=== PATIENT | female | born 1995 | race Two or more races ===

== ENCOUNTER 2017-06-26 18:35 | Emergency (ER) | payer MEDICAID, OTHER ==
[~2017-06-26] VITALS: Ht 165.1 cm; Wt 71.0 kg
[2017-06-26 23:19] VITALS: BP 102/66
== END 2017-06-27 00:45 | disposition home or self-care (01) ==
LOC: ER 20:13
DX: T16.2XXA Foreign body in left ear, initial encounter (principal); W45.8XXA Other foreign body or object entering through skin, initial encounter; Y93.89 Activity, other specified; Y92.89 Other specified places as the place of occurrence of the external cause; Y99.8 Other external cause status
CPT/HCPCS: 69200; 99284; Z7610

== ENCOUNTER 2020-06-10 01:05 | Emergency (ER) | payer OTHER ==
[~2020-06-10] VITALS: Ht 162.6 cm; Wt 68.0 kg
[2020-06-10] MEDS ORDERED: IBUPROFEN 600MG TABLET PO ONE (01:45)
[2020-06-10 01:48] VITALS: BP 110/67
== END 2020-06-10 03:09 | disposition home or self-care (01) ==
LOC: ER 01:05
DX: T16.2XXA Foreign body in left ear, initial encounter (principal); X58.XXXA Exposure to other specified factors, initial encounter; Y93.9 Activity, unspecified; Y92.9 Unspecified place or not applicable
CPT/HCPCS: 69200; 99284

== ENCOUNTER 2020-07-13 15:59 | Emergency (ER) | payer MEDICAID, OTHER ==
[~2020-07-13] VITALS: Ht 165.1 cm; Wt 68.0 kg
[2020-07-13 16:02] VITALS: BP 108/71
[2020-07-13] MEDS ORDERED: KETOROLAC 60MG/2ML VIAL IM ONE (16:30)
== END 2020-07-13 17:43 | disposition home or self-care (01) ==
LOC: ER 15:59
DX: J02.9 Acute pharyngitis, unspecified (principal); H66.92 Otitis media, unspecified, left ear
CPT/HCPCS: 96372; 99283; J1885

== ENCOUNTER 2021-01-18 14:48 | Emergency (ER) | payer MEDICAID ==
[~2021-01-18] VITALS: Ht 165.1 cm; Wt 69.0 kg
[2021-01-18 15:22] VITALS: BP 102/58
[2021-01-18] MEDS ORDERED: CIPDEX RIGHT EAR (16:13)
[2021-01-18] MEDS ORDERED: ALBU05 IH (16:13)
== END 2021-01-18 16:26 | disposition home or self-care (01) ==
LOC: ER 14:48
DX: H60.91 Unspecified otitis externa, right ear (principal); E78.00 Pure hypercholesterolemia, unspecified
CPT/HCPCS: 99281